=== PATIENT | male | born 1945 | race Caucasian/White ===

== ENCOUNTER 2019-04-15 13:45 | Inpatient (IN) | payer OTHER ==
[~2019-04-15] VITALS: Ht 175.3 cm; Wt 63.5 kg
[2019-04-15 14:48] LABS: BASOPHILS % (AUTO) 0.4 % (0-1); EOSINOPHILS % (AUTO) 0 % (0-6); HEMOGLOBIN 14.6 g/dl (14.0-17.9); LYMPHOCYTES # (AUTO) 0.3 X10'3 (1.1-4.8); LYMPHOCYTES % (AUTO) 6.7 % (21-51); MEAN CORPUSCULAR HEMOGLOBIN 30.7 PG (27.0-31.0); MEAN CORPUSCULAR VOLUME 90.1 FL (78-98); MEAN PLATELET VOLUME 7.9 FL (7.4-10.4); MONOCYTES # (AUTO) 0.1 X10'3 (0-0.9); MONOCYTES % (AUTO) 2.7 % (2-12); NEUTROPHILS # (AUTO) 3.8 X10'3 (1.8-7.7); NEUTROPHILS % (AUTO) 90.2 % (42-75); PLATELET COUNT 129 X10'3 (140-440); RED BLOOD COUNT 4.78 X10'6 (4.70-6.10); RED CELL DISTRIBUTION WIDTH 15.1 % (11.5-14.5); WHITE BLOOD COUNT 4.2 X10'3 (4.5-11.0)
[2019-04-15 15:04] LABS: D-DIMER 3.43 MG/L FEU (0-0.50)
[2019-04-15 15:11] LABS: ALANINE AMINOTRANSFERASE 32 U/L (12-78); ALBUMIN/GLOBULIN RATIO 1.4 (1.1-1.5); ALKALINE PHOSPHATASE 64 IU/L (46-116); ANION GAP 9 (8-16); ASPARTATE AMINO TRANSFERASE 29 U/L (10-37); BILIRUBIN,TOTAL 0.4 MG/DL (0.1-1.0); BLOOD UREA NITROGEN 20 MG/DL (7-18); BUN/CREATININE RATIO 24.1 (5.4-32.0); CALCIUM 8.4 MG/DL (8.5-10.1); CHLORIDE 103 MMOL/L (99-107); CREATININE 0.83 MG/DL (0.60-1.10); GLUCOSE 123 MG/DL (70-104); MAGNESIUM 2.1 MG/DL (1.5-2.4); POTASSIUM 4.3 MMOL/L (3.5-5.1); SODIUM 137 MMOL/L (135-145); TOTAL CARBON DIOXIDE 24.8 MMOL/L (24-32); TOTAL PROTEIN 6.9 G/DL (6.4-8.2); eGFR > 90 ML/MIN
[2019-04-15] MEDS ORDERED: nitroGLYCERIN 0.4mg SUBLingual tab SL PRN (15:25)
[2019-04-15] MEDS ORDERED: metoprolol tartrate 1mg/ml inj IV PRN (15:25)
[2019-04-15] MEDS ORDERED: potassium CL 10mEq/100ml bag 100 ML IV PRN ×2 (15:25)
[2019-04-15] MEDS ORDERED: ondansetron/PF 4mg/2ml inj IV PRN (15:25)
[2019-04-15] MEDS ORDERED: morphine 2 MG/ML inj. syringe IV PRN ×2 (15:25)
[2019-04-15] MEDS ORDERED: potassium Cl 20 mEq SR tablet PO PRN ×2 (15:25)
[2019-04-15] MEDS ORDERED: magnesium hydroxide 30ml (MOM) UD suspension PO PRN (15:25)
[2019-04-15] MEDS ORDERED: HYDROcodone/acetaminophen 10/325mg tab PO PRN (15:25)
[2019-04-15] MEDS ORDERED: HYDROcodone/acetaminophen 5mg/325mg tablet PO PRN (15:25)
[2019-04-15] MEDS ORDERED: acetaminophen 325mg tablet PO PRN ×2 (15:25)
[2019-04-15] MEDS ORDERED: aminophylline 250mg/10ml inj. IV PRN (15:25)
[2019-04-15] MEDS ORDERED: mag hydrox/Alum hydrox/simeth 30ml oral suspension PO PRN (15:25)
[2019-04-15] MEDS ORDERED: magnesium 4gm in 100ml NS 100 ML IV PRN (15:25)
[2019-04-15] MEDS ORDERED: magnesium Cl slow-release 64mg tablet PO PRN (15:25)
[2019-04-15] MEDS ORDERED: magnesium 2GM in 50ml NS 50 ML IV PRN (15:25)
[2019-04-15] MEDS ORDERED: regadenoson 0.4mg/5ml syringe IV PRN (15:25)
[2019-04-15] MEDS ORDERED: METO50TA17 PO (19:30)
[2019-04-15] MEDS ORDERED: CLOP75TA15 PO (19:30)
[2019-04-15] MEDS ORDERED: LISI-600 PO (19:30)
[2019-04-15] MEDS ORDERED: TIOT18CA3 INH (19:30)
[2019-04-15] MEDS ORDERED: ALBU1POW2 (19:30)
[2019-04-15] MEDS ORDERED: ATOR80TA PO (19:30)
--- NOTE | 2019-04-15 19:36 | NUR ---
Patient in room PCU 3012A. I have received report from MING Torres from ED and had the opportunity to ask questions.
[2019-04-15] MEDS: K and/or MAG REPLACEMENT MC SCH (20:00)
[2019-04-15] MEDS: methylPREDNISolone sod succ/PF 40mg inj. IV SCH (20:00)
[2019-04-15] MEDS ORDERED: heparin, porcine 5000 units/ml vial SQ SCH (20:00)
[2019-04-15] MEDS: heparin, porcine 5000 units/ml vial SQ SCH (20:07)
[2019-04-15 20:15] VITALS: BP 114/71
--- NOTE | 2019-04-15 20:15 | NUR ---
Pt came to the unit via [facility], accompanied by a nurse. Assumed patient care. Pt safely transferred from [facility] to unit bed with SBA. Assesed pt; denied CP and SOB. VS are stable. Pt put on tele monitor (#59), nasal swab for mrsa was done.
--- NOTE | 2019-04-15 20:48 | NUR ---
Paged Respiratory. 3012A : Rj Melchor Pt needs a breathing treatment. He is SOB and is wheezing. Thanks!
[2019-04-15] MEDS: albuterol 2.5 MG/3 ML nebule NEB SCH (21:26)
[2019-04-15 22:00] VITALS: BP 97/60
[2019-04-16] VITALS (12 sets, daily range): BP systolic 94–127; BP diastolic 57–73
[2019-04-16] MEDS: albuterol 2.5 MG/3 ML nebule NEB SCH ×3 (03:19→16:13)
[2019-04-16 03:23] LABS: BASOPHILS % (AUTO) 0.2 % (0-1); EOSINOPHILS % (AUTO) 0 % (0-6); HEMATOCRIT 44.7 % (42.0-52.0); HEMOGLOBIN 15.1 g/dl (14.0-17.9); LYMPHOCYTES # (AUTO) 0.5 X10'3 (1.1-4.8); LYMPHOCYTES % (AUTO) 16.9 % (21-51); MEAN CORPUSCULAR HEMOGLOBIN 30.3 PG (27.0-31.0); MEAN CORPUSCULAR HGB CONC 33.9 g/dL (33.0-36.5); MEAN CORPUSCULAR VOLUME 89.3 FL (78-98); MEAN PLATELET VOLUME 8.1 FL (7.4-10.4); MONOCYTES # (AUTO) 0.2 X10'3 (0-0.9); MONOCYTES % (AUTO) 6.6 % (2-12); NEUTROPHILS # (AUTO) 2.4 X10'3 (1.8-7.7); NEUTROPHILS % (AUTO) 76.3 % (42-75); PLATELET COUNT 131 X10'3 (140-440); RED CELL DISTRIBUTION WIDTH 15.1 % (11.5-14.5); WHITE BLOOD COUNT 3.2 X10'3 (4.5-11.0)
[2019-04-16 03:30] LABS: ALANINE AMINOTRANSFERASE 28 U/L (12-78); ALBUMIN 3.5 G/DL (3.4-5.0); ALBUMIN/GLOBULIN RATIO 1.3 (1.1-1.5); ALKALINE PHOSPHATASE 60 IU/L (46-116); ANION GAP 7 (8-16); ASPARTATE AMINO TRANSFERASE 30 U/L (10-37); BILIRUBIN,TOTAL 0.3 MG/DL (0.1-1.0); BLOOD UREA NITROGEN 25 MG/DL (7-18); BUN/CREATININE RATIO 30.5 (5.4-32.0); CALCIUM 8.1 MG/DL (8.5-10.1); CHLORIDE 105 MMOL/L (99-107); CREATININE 0.82 MG/DL (0.60-1.10); GLUCOSE 147 MG/DL (70-104); POTASSIUM 4.2 MMOL/L (3.5-5.1); SODIUM 139 MMOL/L (135-145); TOTAL CARBON DIOXIDE 26.6 MMOL/L (24-32); TOTAL PROTEIN 6.3 G/DL (6.4-8.2); eGFR > 90 ML/MIN
[2019-04-16 03:33] LABS: MAGNESIUM 2.3 MG/DL (1.5-2.4)
--- NOTE | 2019-04-16 06:37 | NUR ---
Pt is stable on shift change. Patient report given, questions answered & plan of care reviewed with MING Crocker.
--- NOTE | 2019-04-16 06:50 | NUR ---
Patient in room PCU 3012. I have received report from MING Escamilla and had the opportunity to ask questions and assume patient care.
[2019-04-16] MEDS: K and/or MAG REPLACEMENT MC SCH ×2 (08:00→20:00)
[2019-04-16] MEDS: heparin, porcine 5000 units/ml vial SQ SCH (08:00)
[2019-04-16] MEDS: methylPREDNISolone sod succ/PF 40mg inj. IV SCH ×2 (08:00→20:14)
[2019-04-16] MEDS: CefTRIAXone 2gm/D5W 50ml 50 ML IV SCH (10:04)
[2019-04-16] MEDS ORDERED: TIOT4MIS3 PO (11:27)
[2019-04-16] MEDS ORDERED: LISI2.5T89 PO (11:27)
[2019-04-16] MEDS ORDERED: ALBU18HF2 INH (11:27)
[2019-04-16] MEDS ORDERED: iohexol 350MG/ML 100ml bottle IV ONE ×3 (12:37→18:18)
[2019-04-16] MEDS ORDERED: aspirin 325mg tablet PO SCH (12:45)
[2019-04-16] MEDS ORDERED: LIDOcaine 1% (10mg/ml)w/preservative injection 20ml MDV ONE (16:09)
[2019-04-16] MEDS ORDERED: midazolam 2 mg/2 ml injection ONE (17:45)
[2019-04-16] MEDS ORDERED: fentaNYL/PF 50MCG/1 ML 2ML syringe ONE (17:45)
[2019-04-16] MEDS ORDERED: iohexol 350 MG/ML 50ML vial IV ONE ×3 (18:02→18:30)
--- NOTE | 2019-04-16 18:33 | NUR ---
Problems reprioritized. Patient report given, questions answered & plan of care reviewed with MING Escamilla.
--- NOTE | 2019-04-16 18:34 | NUR ---
Patient in room PCU 3012. I have received report from MING Crocker and had the opportunity to ask questions and assume patient care.
--- NOTE | 2019-04-16 19:15 | NUR ---
Pt came back to unit from [facility] via [facility], accompanied by 2 nurses. A/O x 4, clear speech. VS : T = 98.5 P = 65, R = 18, B = 102/64. No s/s of bleeding/hematoma, dressing c/d/i, normal pulses; pt laying flat on bed, will continue to monitor.
[2019-04-16] MEDS ORDERED: proCHLORperazine 10 MG/2 ml inj IV PRN (19:25)
[2019-04-16] MEDS: carVEDilol 3.125mg tablet PO SCH (20:00)
[2019-04-16] MEDS: atorvastatin 20mg tablet PO SCH (20:13)
[2019-04-16] MEDS: ipratropium/albuterol 3ml nebule NEB SCH ×2 (20:22→23:33)
[2019-04-16] MEDS: lisinopril 2.5mg tablet PO SCH (20:22)
[2019-04-17] VITALS (10 sets, daily range): BP systolic 93–127; BP diastolic 47–80
[2019-04-17] MEDS: ipratropium/albuterol 3ml nebule NEB SCH ×6 (04:20→22:34)
[2019-04-17 04:54] LABS: BASOPHILS % (AUTO) 0.1 % (0-1); EOSINOPHILS % (AUTO) 0 % (0-6); HEMATOCRIT 42.3 % (42.0-52.0); HEMOGLOBIN 14.5 g/dl (14.0-17.9); LYMPHOCYTES # (AUTO) 0.4 X10'3 (1.1-4.8); MEAN CORPUSCULAR HEMOGLOBIN 30.7 PG (27.0-31.0); MEAN CORPUSCULAR HGB CONC 34.2 g/dL (33.0-36.5); MEAN CORPUSCULAR VOLUME 89.7 FL (78-98); MEAN PLATELET VOLUME 8.4 FL (7.4-10.4); MONOCYTES # (AUTO) 0.7 X10'3 (0-0.9); MONOCYTES % (AUTO) 6.5 % (2-12); NEUTROPHILS # (AUTO) 10.1 X10'3 (1.8-7.7); NEUTROPHILS % (AUTO) 89.4 % (42-75); PLATELET COUNT 142 X10'3 (140-440); RED BLOOD COUNT 4.72 X10'6 (4.70-6.10); RED CELL DISTRIBUTION WIDTH 15.3 % (11.5-14.5); WHITE BLOOD COUNT 11.3 X10'3 (4.5-11.0)
[2019-04-17 05:03] LABS: ALANINE AMINOTRANSFERASE 25 U/L (12-78); ALBUMIN 3.4 G/DL (3.4-5.0); ALBUMIN/GLOBULIN RATIO 1.3 (1.1-1.5); ALKALINE PHOSPHATASE 57 IU/L (46-116); ANION GAP 4 (8-16); ASPARTATE AMINO TRANSFERASE 21 U/L (10-37); BILIRUBIN,TOTAL 0.2 MG/DL (0.1-1.0); BLOOD UREA NITROGEN 30 MG/DL (7-18); BUN/CREATININE RATIO 33.3 (5.4-32.0); CALCIUM 8.4 MG/DL (8.5-10.1); CHLORIDE 107 MMOL/L (99-107); GLUCOSE 138 MG/DL (70-104); MAGNESIUM 2.4 MG/DL (1.5-2.4); POTASSIUM 4.5 MMOL/L (3.5-5.1); SODIUM 142 MMOL/L (135-145); TOTAL CARBON DIOXIDE 30.6 MMOL/L (24-32); eGFR 83 ML/MIN
--- NOTE | 2019-04-17 06:28 | NUR ---
Pt is stable on shift change. Patient report given, questions answered & plan of care reviewed with MING Camilo & Iban RN
--- NOTE | 2019-04-17 06:35 | NUR ---
Patient in room PCU 3012. I have received report from Francine LAI and had the opportunity to ask questions and assume patient care.
--- NOTE | 2019-04-17 06:35 | NUR ---
Patient in room PCU 3012. I have received report from Francine LAI and had the opportunity to ask questions and assume patient care.
[2019-04-17] MEDS: K and/or MAG REPLACEMENT MC SCH ×2 (08:00→20:00)
[2019-04-17] MEDS: carVEDilol 3.125mg tablet PO SCH ×2 (08:59→21:49)
[2019-04-17] MEDS: aspirin 81mg tablet.DR PO SCH (08:59)
[2019-04-17] MEDS: lisinopril 2.5mg tablet PO SCH ×2 (09:00→21:49)
[2019-04-17] MEDS: methylPREDNISolone sod succ/PF 40mg inj. IV SCH ×2 (09:00→21:48)
[2019-04-17] MEDS: CefTRIAXone 2gm/D5W 50ml 50 ML IV SCH (09:01)
--- NOTE | 2019-04-17 09:44 | NUR ---
Paged Dr. Howard: PAGER ID: [phone] MESSAGE: RE: Cristino Melchor [id number]. FYI - I have patient's old records from [place]. They are in chart. Leslee [id number]
--- NOTE | 2019-04-17 18:24 | NUR ---
Problems reprioritized. Patient report given, questions answered & plan of care reviewed with Francine LAI patient stable at transfer of care.
--- NOTE | 2019-04-17 18:25 | NUR ---
[place] documentation: I have reviewed and agree with all interventions, assessments performed and documented by MING Ferrera. [place] Medication Administration: For this medication-pass time frame, all medication were reviewed, dispensed, administered and documented per hospital policy by MING Ferrera.
[2019-04-17] MEDS: atorvastatin 20mg tablet PO SCH (21:48)
--- NOTE | 2019-04-18 01:46 | NUR ---
Paged RT. [id number] - Eitan Melchor : Pt needs a breathing tx. He is having SOB and is wheezing. Thanks!
[2019-04-18] MEDS: ipratropium/albuterol 3ml nebule NEB SCH ×5 (01:57→23:25)
[2019-04-18 02:00] VITALS: BP 124/80
[2019-04-18 04:26] LABS: BASOPHILS % (AUTO) 0.1 % (0-1); EOSINOPHILS % (AUTO) 0 % (0-6); HEMATOCRIT 42.1 % (42.0-52.0); HEMOGLOBIN 14.2 g/dl (14.0-17.9); LYMPHOCYTES # (AUTO) 0.4 X10'3 (1.1-4.8); MEAN CORPUSCULAR HEMOGLOBIN 30.3 PG (27.0-31.0); MEAN CORPUSCULAR HGB CONC 33.8 g/dL (33.0-36.5); MEAN CORPUSCULAR VOLUME 89.6 FL (78-98); MEAN PLATELET VOLUME 8.1 FL (7.4-10.4); MONOCYTES # (AUTO) 0.6 X10'3 (0-0.9); MONOCYTES % (AUTO) 7.1 % (2-12); NEUTROPHILS # (AUTO) 7.5 X10'3 (1.8-7.7); NEUTROPHILS % (AUTO) 87.8 % (42-75); PLATELET COUNT 146 X10'3 (140-440); RED CELL DISTRIBUTION WIDTH 15.5 % (11.5-14.5); WHITE BLOOD COUNT 8.5 X10'3 (4.5-11.0)
[2019-04-18 04:52] LABS: ALANINE AMINOTRANSFERASE 25 U/L (12-78); ALBUMIN 3.4 G/DL (3.4-5.0); ALBUMIN/GLOBULIN RATIO 1.3 (1.1-1.5); ALKALINE PHOSPHATASE 54 IU/L (46-116); ANION GAP 2 (8-16); ASPARTATE AMINO TRANSFERASE 19 U/L (10-37); BILIRUBIN,TOTAL 0.3 MG/DL (0.1-1.0); BLOOD UREA NITROGEN 22 MG/DL (7-18); BUN/CREATININE RATIO 26.8 (5.4-32.0); CALCIUM 8.6 MG/DL (8.5-10.1); CHLORIDE 106 MMOL/L (99-107); CREATININE 0.82 MG/DL (0.60-1.10); GLUCOSE 147 MG/DL (70-104); MAGNESIUM 2.2 MG/DL (1.5-2.4); POTASSIUM 5.3 MMOL/L (3.5-5.1); SODIUM 142 MMOL/L (135-145); TOTAL CARBON DIOXIDE 33.9 MMOL/L (24-32); TOTAL PROTEIN 6.1 G/DL (6.4-8.2); eGFR > 90 ML/MIN
--- NOTE | 2019-04-18 06:11 | NUR ---
Pt is stable on shift change. Problems reprioritized. Patient report given, questions answered & plan of care reviewed with Nesha Camilo & Iban RN .
--- NOTE | 2019-04-18 06:28 | NUR ---
Patient in room PCU 3012. I have received report from Francine LAI and had the opportunity to ask questions and assume patient care. Patient asleep in bed and resting comfortably. In no acute distress.
--- NOTE | 2019-04-18 06:33 | NUR ---
Patient in room PCU 3012. I have received report from Francine LAI and had the opportunity to ask questions and assume patient care.
[2019-04-18 07:00] VITALS: BP 131/80
[2019-04-18] MEDS: K and/or MAG REPLACEMENT MC SCH ×2 (08:00→20:00)
[2019-04-18] MEDS: CefTRIAXone 2gm/D5W 50ml 50 ML IV SCH (08:44)
[2019-04-18] MEDS: methylPREDNISolone sod succ/PF 40mg inj. IV SCH ×2 (08:45→19:49)
[2019-04-18] MEDS: aspirin 81mg tablet.DR PO SCH (08:45)
[2019-04-18] MEDS: furosemide 20 MG/2 ML vial IV SCH ×2 (08:45→19:49)
[2019-04-18] MEDS: carVEDilol 3.125mg tablet PO SCH ×2 (08:45→19:49)
[2019-04-18 11:00] VITALS: BP 134/78
[2019-04-18 15:00] VITALS: BP 129/78
[2019-04-18 18:00] VITALS: BP 138/69
--- NOTE | 2019-04-18 18:10 | NUR ---
Problems reprioritized. Patient report given, questions answered & plan of care reviewed with Tomi RN, patient stable at transfer of care.
--- NOTE | 2019-04-18 19:28 | NUR ---
Patient in room PCU 3012. I have received report from Iban LAI and had the opportunity to ask questions and assume patient care.
--- NOTE | 2019-04-18 19:35 | NUR ---
Patient in room PCU 3012. I have received report from Iban LAI and had the opportunity to ask questions and assume patient care.
[2019-04-18] MEDS: lisinopril 2.5mg tablet PO SCH (19:48)
[2019-04-18] MEDS: atorvastatin 20mg tablet PO SCH (19:49)
[2019-04-18 22:00] VITALS: BP 94/58
[2019-04-19 02:00] VITALS: BP 93/59
[2019-04-19] MEDS: ipratropium/albuterol 3ml nebule NEB SCH ×6 (02:54→23:05)
[2019-04-19 05:09] LABS: BASOPHILS % (AUTO) 0.2 % (0-1); EOSINOPHILS % (AUTO) 0 % (0-6); HEMATOCRIT 44.5 % (42.0-52.0); HEMOGLOBIN 15.1 g/dl (14.0-17.9); LYMPHOCYTES # (AUTO) 0.6 X10'3 (1.1-4.8); LYMPHOCYTES % (AUTO) 9.6 % (21-51); MEAN CORPUSCULAR HEMOGLOBIN 30.5 PG (27.0-31.0); MEAN CORPUSCULAR HGB CONC 33.9 g/dL (33.0-36.5); MEAN CORPUSCULAR VOLUME 89.8 FL (78-98); MEAN PLATELET VOLUME 8.1 FL (7.4-10.4); MONOCYTES # (AUTO) 0.6 X10'3 (0-0.9); MONOCYTES % (AUTO) 10.4 % (2-12); NEUTROPHILS # (AUTO) 4.6 X10'3 (1.8-7.7); NEUTROPHILS % (AUTO) 79.8 % (42-75); PLATELET COUNT 146 X10'3 (140-440); RED BLOOD COUNT 4.95 X10'6 (4.70-6.10); RED CELL DISTRIBUTION WIDTH 14.8 % (11.5-14.5); WHITE BLOOD COUNT 5.8 X10'3 (4.5-11.0)
[2019-04-19 05:24] LABS: ALANINE AMINOTRANSFERASE 25 U/L (12-78); ALBUMIN 3.5 G/DL (3.4-5.0); ALBUMIN/GLOBULIN RATIO 1.3 (1.1-1.5); ALKALINE PHOSPHATASE 58 IU/L (46-116); ANION GAP 5 (8-16); ASPARTATE AMINO TRANSFERASE 21 U/L (10-37); BILIRUBIN,TOTAL 0.4 MG/DL (0.1-1.0); BLOOD UREA NITROGEN 20 MG/DL (7-18); CHLORIDE 102 MMOL/L (99-107); CREATININE 0.69 MG/DL (0.60-1.10); GLUCOSE 148 MG/DL (70-104); MAGNESIUM 2.3 MG/DL (1.5-2.4); POTASSIUM 4.8 MMOL/L (3.5-5.1); SODIUM 140 MMOL/L (135-145); TOTAL CARBON DIOXIDE 33.5 MMOL/L (24-32); TOTAL PROTEIN 6.3 G/DL (6.4-8.2); eGFR > 90 ML/MIN
[2019-04-19 06:00] VITALS: BP 115/71
--- NOTE | 2019-04-19 06:24 | NUR ---
Problems reprioritized. Patient report given, questions answered & plan of care reviewed with Axel LAI.
--- NOTE | 2019-04-19 06:58 | NUR ---
Patient in room PCU 3012. I have received report from Kush LAI and had the opportunity to ask questions and assume patient care.
[2019-04-19] MEDS: K and/or MAG REPLACEMENT MC SCH ×2 (08:00→20:00)
[2019-04-19] MEDS: methylPREDNISolone sod succ/PF 40mg inj. IV SCH ×2 (08:16→20:09)
[2019-04-19] MEDS: furosemide 20 MG/2 ML vial IV SCH ×2 (08:16→20:08)
[2019-04-19] MEDS: CefTRIAXone 2gm/D5W 50ml 50 ML IV SCH (08:16)
[2019-04-19] MEDS: aspirin 81mg tablet.DR PO SCH (08:16)
[2019-04-19] MEDS: carVEDilol 3.125mg tablet PO SCH ×2 (08:16→20:08)
[2019-04-19 11:00] VITALS: BP 99/62
--- NOTE | 2019-04-19 12:33 | NUR ---
Initial: patient presented to ED as transfer from [facility] with shortness of breath x1 week; admitted with COPD exacerbation, and chest pain s/p cardiac cath. On heart healthy diet. Has great appetite eating 75-100% PO intake and meeting nutrition needs. Documented with constipation and last BM on 04/16, received milk of magnesia 04/18 and continues with prn bowel care. Recommend: 1. continue heart healthy diet 2. bowel care as needed 3. weight per rx Addendum: 04/19/19 at [address] Amended: Links added.
[2019-04-19 15:00] VITALS: BP 118/72
[2019-04-19 18:00] VITALS: BP 100/54
--- NOTE | 2019-04-19 18:20 | NUR ---
Patient in room PCU 3012. I have received report from MING Genao and had the opportunity to ask questions and assume patient care.
--- NOTE | 2019-04-19 18:24 | NUR ---
Problems reprioritized. Patient report given, questions answered & plan of care reviewed with Margaret LAI.
[2019-04-19] MEDS: atorvastatin 20mg tablet PO SCH (20:08)
[2019-04-19] MEDS: lisinopril 2.5mg tablet PO SCH (20:16)
[2019-04-19 22:00] VITALS: BP 107/78
[2019-04-20 02:00] VITALS: BP 101/58
[2019-04-20] MEDS: ipratropium/albuterol 3ml nebule NEB SCH ×2 (03:00→08:27)
[2019-04-20 06:00] VITALS: BP 107/63
--- NOTE | 2019-04-20 06:19 | NUR ---
Problems reprioritized. Patient report given, questions answered & plan of care reviewed with MING Ramirez.
[2019-04-20 06:23] LABS: ALANINE AMINOTRANSFERASE 29 U/L (12-78); ALBUMIN 3.5 G/DL (3.4-5.0); ALBUMIN/GLOBULIN RATIO 1.3 (1.1-1.5); ALKALINE PHOSPHATASE 61 IU/L (46-116); ANION GAP 2 (8-16); ASPARTATE AMINO TRANSFERASE 21 U/L (10-37); BILIRUBIN,TOTAL 0.4 MG/DL (0.1-1.0); BLOOD UREA NITROGEN 30 MG/DL (7-18); BUN/CREATININE RATIO 37.5 (5.4-32.0); CALCIUM 8.4 MG/DL (8.5-10.1); CHLORIDE 101 MMOL/L (99-107); GLUCOSE 136 MG/DL (70-104); MAGNESIUM 2.5 MG/DL (1.5-2.4); SODIUM 139 MMOL/L (135-145); TOTAL CARBON DIOXIDE 35.7 MMOL/L (24-32); TOTAL PROTEIN 6.2 G/DL (6.4-8.2); eGFR > 90 ML/MIN
--- NOTE | 2019-04-20 06:23 | NUR ---
Patient in room PCU 3012. I have received report from MING Robles and had the opportunity to ask questions and assume patient care.
[2019-04-20 06:25] LABS: BASOPHILS % (AUTO) 0.1 % (0-1); EOSINOPHILS % (AUTO) 0 % (0-6); HEMATOCRIT 45.7 % (42.0-52.0); HEMOGLOBIN 15.6 g/dl (14.0-17.9); LYMPHOCYTES # (AUTO) 0.6 X10'3 (1.1-4.8); LYMPHOCYTES % (AUTO) 9.5 % (21-51); MEAN CORPUSCULAR HEMOGLOBIN 30.4 PG (27.0-31.0); MEAN CORPUSCULAR HGB CONC 34.2 g/dL (33.0-36.5); MEAN CORPUSCULAR VOLUME 89.2 FL (78-98); MEAN PLATELET VOLUME 8.2 FL (7.4-10.4); MONOCYTES # (AUTO) 0.9 X10'3 (0-0.9); MONOCYTES % (AUTO) 15.2 % (2-12); NEUTROPHILS # (AUTO) 4.6 X10'3 (1.8-7.7); NEUTROPHILS % (AUTO) 75.2 % (42-75); PLATELET COUNT 147 X10'3 (140-440); RED BLOOD COUNT 5.13 X10'6 (4.70-6.10); RED CELL DISTRIBUTION WIDTH 14.6 % (11.5-14.5); WHITE BLOOD COUNT 6.1 X10'3 (4.5-11.0)
[2019-04-20] MEDS: CefTRIAXone 2gm/D5W 50ml 50 ML IV SCH (07:15)
[2019-04-20] MEDS: carVEDilol 3.125mg tablet PO SCH (07:15)
[2019-04-20] MEDS: furosemide 20 MG/2 ML vial IV SCH (07:15)
[2019-04-20] MEDS: methylPREDNISolone sod succ/PF 40mg inj. IV SCH (07:15)
[2019-04-20] MEDS: aspirin 81mg tablet.DR PO SCH (07:44)
[2019-04-20] MEDS ORDERED: FURO40TA4 PO (08:40)
[2019-04-20] MEDS ORDERED: COR3.125T PO (08:40)
[2019-04-20] MEDS ORDERED: ASPI-1071 PO (08:40)
== END 2019-04-20 12:21 | disposition home or self-care (01) | DRG 280 ==
LOC: ER 13:46 → ED HOLD 15:24 → PCU 3S 20:10
PROVIDERS: ADMIT Internal Medicine; ATTEND Internal Medicine
PROC: 4A023N7 Measurement of Cardiac Sampling and Pressure, Left Heart, Percutaneous Approach (ICD-10-PCS; principal; 2019-04-16)
PROC: B2111ZZ Fluoroscopy of Multiple Coronary Arteries using Low Osmolar Contrast (ICD-10-PCS; 2019-04-16)
PROC: B2151ZZ Fluoroscopy of Left Heart using Low Osmolar Contrast (ICD-10-PCS; 2019-04-16)
PROC: B3101ZZ Fluoroscopy of Thoracic Aorta using Low Osmolar Contrast (ICD-10-PCS; 2019-04-16)
PROC: 4A02XM4 Measurement of Cardiac Total Activity, External Approach (ICD-10-PCS; 2019-04-16)
PROC: 3E033HZ Introduction of Radioactive Substance into Peripheral Vein, Percutaneous Approach (ICD-10-PCS; 2019-04-16)
DX: I21.4 Non-ST elevation (NSTEMI) myocardial infarction (principal); I50.23 Acute on chronic systolic (congestive) heart failure; J44.1 Chronic obstructive pulmonary disease with (acute) exacerbation; J44.0 Chronic obstructive pulmonary disease with (acute) lower respiratory infection; I44.7 Left bundle-branch block, unspecified; J20.9 Acute bronchitis, unspecified; D69.6 Thrombocytopenia, unspecified; E78.5 Hyperlipidemia, unspecified; F17.210 Nicotine dependence, cigarettes, uncomplicated; I11.0 Hypertensive heart disease with heart failure; I25.10 Atherosclerotic heart disease of native coronary artery without angina pectoris; Z95.5 Presence of coronary angioplasty implant and graft; Z95.1 Presence of aortocoronary bypass graft; Z79.899 Other long term (current) drug therapy
CPT/HCPCS: 36415; 71045; 71275; 78452; 80053; 83605; 83735; 83880; 84145; 84484; 85025; 85379; 87040; 87081; 93005; 93306; 93459; 93567; 94640; 94667; 94760; 97161; 97530; 99152; 99153; 99285; A6258; A9500; C1769; G0378; J0696; J1644; J1940; J2001; J2250; J2920; J3010; Q9967